=== PATIENT | male | born 1965 | race Hispanic/Latino ===

== ENCOUNTER 2022-03-14 06:18 | Observation (INO) | payer BC ==
[2022-03-13 13:09] VITALS: BMI 32.5
[2022-03-14] MEDS ORDERED: Sodium Chloride 0.9% 100 ML ONE ×2 (07:10→09:23)
[2022-03-14] MEDS ORDERED: Vancomycin (BATCH) 1.5 GRAM/300 ML BAG ONE (07:10)
[2022-03-14] MEDS ORDERED: Tranexamic Acid 1,000 MG/10 ML VIAL ONE (07:10)
[2022-03-14 07:57] LABS: SARS-CoV-2 NAA Rapid Test Not Detected (NotDetected)
[2022-03-14] MEDS ORDERED: Midazolam HCl 2 mg/2 ml Vial ONE (08:00)
[2022-03-14] MEDS ORDERED: Ropivacaine 0.5% HCl/PF (150 MG/30 ML VIAL) ONE ×2 (08:00→09:35)
[2022-03-14] MEDS ORDERED: Fentanyl 100 MCG/2 ML VIAL ONE (08:00)
[2022-03-14] MEDS ORDERED: Fentanyl 100 MCG/2 ML VIAL IV PRN (08:49)
[2022-03-14] MEDS ORDERED: HYDROcodone/Acetaminophen 10/325 mg Tablet PO PRN ×2 (09:00)
[2022-03-14] MEDS ORDERED: traMADol HCl 50 MG TAB PO PRN ×2 (09:00)
[2022-03-14] MEDS ORDERED: Ondansetron PF 4 MG/2 ML Vial IVP PRN ×2 (09:00→09:04)
[2022-03-14] MEDS ORDERED: Promethazine HCl 25 MG/ML VIAL IM PRN ×2 (09:00→09:04)
[2022-03-14] MEDS ORDERED: Zolpidem Tartrate 5 MG TAB PO PRN ×2 (09:00→09:04)
[2022-03-14] MEDS ORDERED: Ropivacaine 0.2% 550 ML 550 ML NERVE BLCK SCH (09:00)
[2022-03-14] MEDS ORDERED: Fentanyl 100 MCG/2 ML VIAL SLOW IVP PRN (09:04)
[2022-03-14] MEDS ORDERED: diphenhydrAMINE 25 MG CAP PO PRN (09:04)
[2022-03-14] MEDS ORDERED: Acetaminophen 325 MG TAB PO PRN (09:04)
[2022-03-14] MEDS ORDERED: fentaNYL Citrate/PF 100 MCG/2 ML SYRINGE ONE ×2 (09:08→11:07)
[2022-03-14] MEDS ORDERED: Bupivacaine PF 0.5% 30 ML VIAL ONE (09:12)
[2022-03-14] MEDS ORDERED: CEFAZOLIN 2 GM VIAL ONE (09:23)
[2022-03-14] MEDS ORDERED: PROPOFOL 200 MG/20 ML VIAL ONE (09:35)
[2022-03-14] MEDS ORDERED: Glycopyrrolate 0.2 MG/ML 5 ML SYRINGE ONE (09:35)
[2022-03-14] MEDS ORDERED: ePHEDrine 50 MG/ML VIAL ONE (09:35)
[2022-03-14] MEDS ORDERED: Ondansetron PF 4 MG/2 ML Vial ONE (09:35)
[2022-03-14] MEDS ORDERED: Dexamethasone 20 MG/5 ML VIAL ONE (09:35)
[2022-03-14] MEDS ORDERED: PROPOFOL 20 ML ONE (10:35)
[2022-03-14] MEDS: Sodium Chloride 0.9% 1,000 ML IV SCH ×2 (12:27→18:20)
[2022-03-14] MEDS: Ketorolac Tromethamine 30 MG/ML VIAL IVP SCH ×3 (12:28→23:12)
[2022-03-14] MEDS: CEFAZOLIN 2 GM in Sodium Chloride 0.9% 100 ML IVPB SCH (17:25)
[2022-03-14] MEDS: Aspirin 81 mg Enteric Coated Tablet PO SCH (20:43)
[2022-03-14] MEDS ORDERED: Atorvastatin Calcium 10 MG TAB PO SCH (21:00)
[2022-03-14] MEDS ORDERED: Lisinopril 10 MG TAB PO SCH (21:00)
[2022-03-15] MEDS: CEFAZOLIN 2 GM in Sodium Chloride 0.9% 100 ML IVPB SCH (01:48)
[2022-03-15] MEDS: Sodium Chloride 0.9% 1,000 ML IV SCH (01:50)
[2022-03-15] MEDS: Ketorolac Tromethamine 30 MG/ML VIAL IVP SCH (05:15)
[2022-03-15 06:03] VITALS: TEMP 98.1
[2022-03-15 06:57] LABS: Hemoglobin 13.1 g/dL (14.0-18.0); Mean Corpuscular HGB CONC 35.3 g/dL (32.0-36.0); Mean Corpuscular Hemoglobin 32.4 pg (27.0-31.0); Mean Platelet Volume 8.8 fL (7.4-10.4); Platelet Count 245 thou/uL (130-400); RBC Distribution Width 11.8 % (11.5-14.5); Red Blood Cell (RBC) Count 4.03 mill/uL (4.70-6.10); White Blood Cell (WBC) Count 19.3 thou/uL (4.8-10.8)
[2022-03-15] MEDS ORDERED: Ferrous Gluconate 324 MG TAB PO SCH (08:00)
[2022-03-15] MEDS: Aspirin 81 mg Enteric Coated Tablet PO SCH (08:40)
[2022-03-15] MEDS ORDERED: Multivitamin W/ Minerals 1 TAB PO SCH (09:00)
[2022-03-15] MEDS ORDERED: Senokot S 8.6-50 MG TAB PO SCH (09:00)
[2022-03-15] MEDS ORDERED: FLU VACC QS2022-23(6MOS UP)/PF 60 MCG/0.5 ML SYRINGE IM ONE (09:00)
[2022-03-15 10:01] VITALS: BP 128/78
== END 2022-03-15 10:45 | disposition home or self-care (01) ==
LOC: SDC 06:18 → SURG A 12:12 → SDC 13:17 → SURG A 13:17
PROVIDERS: ADMIT Orthopaedic Surgery; ATTEND Orthopaedic Surgery
PROC: 0SRD0J9 Replacement of Left Knee Joint with Synthetic Substitute, Cemented, Open Approach (ICD-10-PCS; principal; 2022-03-14)
DX: M17.12 Unilateral primary osteoarthritis, left knee (principal); J30.2 Other seasonal allergic rhinitis; Z79.899 Other long term (current) drug therapy; Z20.822 Contact with and (suspected) exposure to COVID-19
CPT/HCPCS: 36415; 85027; 96374; 96375; 96376; A4306; C1713; C1776; G0378; J1100; J1885; J2250; J2405; J2704; J2795; J3010; J3370; J3490; J7050; S0020; U0002